=== PATIENT | male | born 1990 ===

== ENCOUNTER 2017-06-14 08:44 | Inpatient (IN) | payer SELFPAY ==
[~2017-06-14] VITALS: Ht 185.4 cm; Wt 80.0 kg
[2017-06-14 11:47] VITALS: BP 109/69
[2017-06-14 11:59] VITALS: BP 109/69
[2017-06-14 15:37] VITALS: BP 113/54
[2017-06-15 07:46] VITALS: BP 107/67
[2017-06-15 15:48] VITALS: BP 133/60
[2017-06-16 07:49] VITALS: BP 93/52
[2017-06-16] MEDS ORDERED: QUETIAPINE FUM300 MG PO (08:45)
[2017-06-16] MEDS ORDERED: SEROQUEL300 MG PO (08:52)
== END 2017-06-16 10:48 | disposition home or self-care (01) | DRG 883 ==
LOC: 1WEST 08:44
DX: F63.81 Intermittent explosive disorder (principal); F12.20 Cannabis dependence, uncomplicated; F31.9 Bipolar disorder, unspecified; J45.909 Unspecified asthma, uncomplicated
CPT/HCPCS: 97150 GO; 97165 GO